=== PATIENT | male | born 1965 | race Caucasian/White ===

== ENCOUNTER 2020-06-12 11:10 | Emergency (ER) | payer BC ==
--- NOTE | 2020-06-12 12:04 | ERPHSYRPT ---
- History of Present Illness Time Seen by Provider: 06/12/20 11:44 Patient Subjective Stated Complaint: SOB Triage Nursing Assessment: Patient brought back to ED via w/c and transferred self to bed. Patient A+O Physician History: 54 years old male presented in the ER with chief complaint of cough and shortness of breath for the last 2 to 3 days with progressive worsening. Rectal dry cough associated with chest soreness and shortness of breath especially with activity. Also having fever and chills with a T-max of 101 yesterday. Has been taking [id number] meds with some symptomatic relief. No definite known sick contacts for COVID-19. No abdominal pain nausea vomiting, loss of taste or smell sensations. Timing/Duration: day(s) (3), gradual onset, worse Cough Quality/Degree: moderate, dry cough, productive cough Possible Cause: no prior episodes Modifying Factors: Improves With: nothing. Worsens With: coughing, exertion Associated Symptoms: fever, chills, chest pain/soreness, cough, headache, muscle aches, nasal congestion, sore throat Allergies/Adverse Reactions: No Known Drug Allergies Allergy (Unverified 06/12/20 11:13) Hx Influenza Vaccination/Date Given: Yes Hx Pneumococcal Vaccination/Date Given: No Immunizations Up to Date: Yes Travel Risk - International Travel Have you traveled outside of the country in past 3 weeks: No - Coronavirus Screening Are you exhibiting any of the following symptoms?: Yes Symptoms: Fever, Cough: New Onset, Shortness of Breath, Vomiting/Diarrhea, Loss of Taste or Smell Close contact with a COVID-19 positive Pt in past 14-21 Days: Yes - Review of Systems Constitutional: Fever, Chills, Fatigue, Malaise Eyes: No Symptoms Ears, Nose, & Throat: Nose Congestion, Throat Pain Respiratory: Cough, Dyspnea Cardiac: Chest Pain Abdominal/Gastrointestinal: No Symptoms Genitourinary Symptoms: No Symptoms Musculoskeletal: Myalgias Skin: No Symptoms Neurological: No Symptoms Psychological: No Symptoms Endocrine: No Symptoms Hematologic/Lymphatic: No Symptoms Immunological/Allergic: No Symptoms - Past Medical History Pertinent Past Medical History: No Neurological History: No Pertinent History ENT History: No Pertinent History Cardiac History: High Cholesterol, Hypertension Respiratory History: No Pertinent History Endocrine Medical History: No Pertinent History Musculoskeletal History: No Pertinent History GI Medical History: No Pertinent History History: No Pertinent History Psycho-Social History: No Pertinent History Male Reproductive Disorders: No Pertinent History - Past Surgical History Past Surgical History: No Neuro Surgical History: No Pertinent History Musculoskeletal: Orthopedic Surgery Other Surgical History: neck surgery with 8 screws and 2 rods 2018 - Social History Smoking Status: Never smoker Exposure to second hand smoke: No Drug Use: none Patient Lives Alone: No - Nursing Vital Signs Nursing Vital Signs: Initial Vital Signs Temperature 98.7 F 06/12/20 11:14 Pulse Rate 87 06/12/20 11:14 Respiratory Rate 32 H 06/12/20 11:14 Blood Pressure 122/83 06/12/20 11:14 O2 Sat by Pulse Oximetry 97 06/12/20 11:14 Pain Scale Pain Intensity 0 - Physical Exam General Appearance: no apparent distress, alert Eye Exam: PERRL/EOMI, eyes nml inspection Ears, Nose, Throat Exam: normal ENT inspection, TMs normal, pharyngeal erythema Neck Exam: normal inspection, non-tender, supple, full range of motion Respiratory Exam: normal breath sounds, lungs clear Cardiovascular Exam: regular rate/rhythm, normal heart sounds Gastrointestinal/Abdomen Exam: soft, normal bowel sounds, No tenderness Back Exam: normal inspection, normal range of motion Extremity Exam: normal inspection, normal range of motion Neurologic Exam: alert, oriented x 3, 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, 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 Skin Exam: normal color SpO2 Interpretation: normal SpO2: 97 O2 Delivery: Room Air - Course EKG Interpreted by Me: RATE (85), Sinus Rhythm, NORMAL AXIS, NORMAL INTERVALS, Non-specific ST Changes Ordered Tests: Active Orders 24 hr Category Date Time Status CHEST 1 VIEW (PORTABLE) Stat Exams 06/12/20 12:04 Taken BLOOD CULTURE Stat Lab 06/12/20 12:15 Received CBC W DIFF Stat Lab 06/12/20 12:25 Completed CMP Stat Lab 06/12/20 12:25 Completed INFLUENZA A+B YEVGENIY Stat Lab 06/12/20 13:00 Completed Lactic Acid Stat Lab 06/12/20 12:04 Completed Lactic Acid Stat Lab 06/12/20 14:17 Received MAGNESIUM Stat Lab 06/12/20 12:25 Completed Respiratory Therapy Assessment DAILY RT 06/12/20 12:40 Active Medication Summary Generic Name Dose Route Start Last Admin Trade Name Freq PRN Reason Stop Dose Admin Albuterol Sulfate 4 puff 06/12/20 13:00 06/12/20 12:25 Ventolin Common Canister IH 07/12/20 12:59 4 puff TIDRT FILIPE Administration Discontinued Medications Generic Name Dose Route Start Last Admin Trade Name Finesse PRN Reason Stop Dose Admin Hydrocodone Bitart/Acetaminophen 15 ml 06/12/20 12:05 06/12/20 12:11 Hydrocodone-Acetamin 2.5-108/5 Ml Solution PO 06/12/20 12:06 15 ml STAT STA Administration Hydrocodone Bitart/Acetaminophen Confirm 06/12/20 12:09 Hydrocodone-Acetamin 2.5-108/5 Ml Solution Administered 06/12/20 12:10 Dose 5 ml .ROUTE .STK-MED ONE Hydrocodone Bitart/Acetaminophen Confirm 06/12/20 12:10 Hydrocodone-Acetamin 2.5-108/5 Ml Solution Administered 06/12/20 12:11 Dose 10 ml .ROUTE .STK-MED ONE Levofloxacin 500 mg 06/12/20 14:08 06/12/20 14:11 Levofloxacin 250mg Tablet PO 06/12/20 14:09 500 mg STAT ONE Administration Levofloxacin Confirm 06/12/20 14:10 Levofloxacin 250mg Tablet Administered 06/12/20 14:11 Dose 500 mg .ROUTE .STK-MED ONE Lab/Rad Data: Laboratory Result Diagrams 06/12/20 12:25 06/12/20 12:25 Laboratory Results 06/12/20 06/12/20 06/12/20 Range/Units 13:00 12:25 12:25 WBC 6.2 (4.0-10.5) K/mm3 RBC 5.10 (4.1-5.6) M/mm3 Hgb 15.1 (12.5-18.0) gm/dl Hct 44.8 (42-50) % MCV 87.8 (78-100) fl MCH 29.6 (26-32) pg MCHC 33.7 (32-36) g/dl RDW 13.0 (11.5-14.0) % Plt Count 197 (150-450) K/mm3 MPV 11.2 H (7.5-11.0) fl Gran % 72.5 H (36.0-66.0) % Eos # (Auto) 0.08 (0-0.5) Absolute Lymphs (auto) 1.12 (1.0-4.6) Absolute Monos (auto) 0.48 (0.0-1.3) Lymphocytes % 18.1 L (24.0-44.0) % Monocytes % 7.8 (0.0-12.0) % Eosinophils % 1.3 (0.00-5.0) % Basophils % 0.3 (0.0-0.4) % Absolute Granulocytes 4.49 (1.4-6.9) Basophils # 0.02 (0-0.4) Sodium 134 L (137-145) mmol/L Potassium 3.5 (3.5-5.1) mmol/L Chloride 96 L (98-107) mmol/L Carbon Dioxide 30 (22-30) mmol/L Anion Gap 11.8 (5-15) MEQ/L BUN 18 (9-20) mg/dL Creatinine 1.00 (0.66-1.25) mg/dL Estimated GFR > 60.0 ML/MIN Glucose 194 H (74-106) mg/dL Lactic Acid (0.4-2.0) Calcium 8.9 (8.4-10.2) mg/dL Magnesium 1.9 (1.6-2.3) mg/dL Total Bilirubin 0.90 (0.2-1.3) mg/dL AST 34 (17-59) U/L ALT 31 (0-50) U/L Alkaline Phosphatase 109 (38-126) U/L Serum Total Protein 7.5 (6.3-8.2) g/dL Albumin 4.1 (3.5-5.0) g/dL Influenza Type A Ag NEGATIVE (NEGATIVE) Influenza Type B Ag NEGATIVE (NEGATIVE) 06/12/20 Range/Units 12:04 WBC (4.0-10.5) K/mm3 RBC (4.1-5.6) M/mm3 Hgb (12.5-18.0) gm/dl Hct (42-50) % MCV (78-100) fl MCH (26-32) pg MCHC (32-36) g/dl RDW (11.5-14.0) % Plt Count (150-450) K/mm3 MPV (7.5-11.0) fl Gran % (36.0-66.0) % Eos # (Auto) (0-0.5) Absolute Lymphs (auto) (1.0-4.6) Absolute Monos (auto) (0.0-1.3) Lymphocytes % (24.0-44.0) % Monocytes % (0.0-12.0) % Eosinophils % (0.00-5.0) % Basophils % (0.0-0.4) % Absolute Granulocytes (1.4-6.9) Basophils # (0-0.4) Sodium (137-145) mmol/L Potassium (3.5-5.1) mmol/L Chloride (98-107) mmol/L Carbon Dioxide (22-30) mmol/L Anion Gap (5-15) MEQ/L BUN (9-20) mg/dL Creatinine (0.66-1.25) mg/dL Estimated GFR ML/MIN Glucose (74-106) mg/dL Lactic Acid 2.4 H (0.4-2.0) Calcium (8.4-10.2) mg/dL Magnesium (1.6-2.3) mg/dL Total Bilirubin (0.2-1.3) mg/dL AST (17-59) U/L ALT (0-50) U/L Alkaline Phosphatase (38-126) U/L Serum Total Protein (6.3-8.2) g/dL Albumin (3.5-5.0) g/dL Influenza Type A Ag (NEGATIVE) Influenza Type B Ag (NEGATIVE) - Progress Progress: improved Air Movement: good Progress Note: 06/12/20 14:08 54 years old is evaluated for cough congestion and difficulty breathing. Patient is not in any distress. He is given breathing treatment and cough medication, on reevaluation feeling much better. Is maintaining oxygen saturation around 96% on room air, not tachypneic or tachycardic. Has normal white count, lactate of 2.4 and chest x-ray findings suggesting right-sided pneumonia. I have obtained COVID-19 test which is pending. He does not need oxygen, I have started him on Levaquin. I I have discussed with patient about observation admission versus going home and he wants to go home. I think this is reasonable. Will give liquid hydrocodone for cough and albuterol along with Levaquin. Recommended outpatient follow-up. Discussed signs symptoms of worsening needing return to ER which he seems understanding. Stable for discharge. Blood Culture(s) Obtained: Yes Antibiotics given: Yes Counseled pt/family regarding: lab results, diagnosis, need for follow-up, rad results - Departure Departure Disposition: Home Clinical Impression: Pneumonia Qualifiers: Pneumonia type: due to unspecified organism Laterality: right Lung location: lower lobe of lung Qualified Code(s): J18.9 - Pneumonia, unspecified organism Condition: Stable Critical Care Time: No Referrals: MORALES DA SILVA [Primary Care Provider] - (1-2 days for evaluation) Instructions: Pneumonia in Adults Additional Instructions: Take Tylenol/ibuprofen as needed for pain/fever. Drink plenty of fluids. Use contact/droplet precautions all the time until your COVID-19 test is back. Follow-up with primary care physician for reevaluation in 1 to 2 days. Return to ER for worsening cough/shortness of breath/fever chills etc. Prescriptions: Hydrocodone Bit/Acetaminophen [Hydrocodone-Acetaminophen Soln] 10 ml PO Q6H #120 ml Levofloxacin [Levaquin 500 MG Tablet] 500 mg PO DAILY #7 tablet Albuterol 8 gm Mdi Hfa [Ventolin Hfa MDI] 8 gm IH Q4H #1 [email or web address]
[2020-06-12] MEDS ORDERED: HYDROCODONE-ACETAMIN 2.5-108/5 ML SOLUTION PO STA (12:05)
[2020-06-12] MEDS ORDERED: HYDROCODONE-ACETAMIN 2.5-108/5 ML SOLUTION ONE ×2 (12:09→12:10)
[2020-06-12 12:38] LABS: Absolute Neutrophil Ct (ANC) 4.49 (1.4-6.9); BASOPHIL % 0.3 % (0.0-0.4); Basophil (Absolute #) 0.02 (0-0.4); Eosinophil % 1.3 % (0.00-5.0); Eosinophil (Absolute #) 0.08 (0-0.5); Hematocrit 44.8 % (42-50); Hemoglobin 15.1 gm/dl (12.5-18.0); Lymphocyte (Absolute #) 1.12 (1.0-4.6); Lymphocytes % 18.1 % (24.0-44.0); Mean Cell Volume 87.8 fl (78-100); Mean Corpuscular Hemoglobin 29.6 pg (26-32); Mean Corpuscular Hgb Concent. 33.7 g/dl (32-36); Mean Platelet Volume 11.2 fl (7.5-11.0); Monocyte (Absolute #) 0.48 (0.0-1.3); Monocytes % 7.8 % (0.0-12.0); Neutrophil % 72.5 % (36.0-66.0); Platelet Count 197 K/mm3 (150-450); White Blood Count 6.2 K/mm3 (4.0-10.5)
[2020-06-12 12:42] LABS: ALBUMIN 4.1 g/dL (3.5-5.0); ALKALINE PHOSPHATASE 109 U/L (38-126); ANION GAP 11.8 MEQ/L (5-15); BLOOD UREA NITROGEN 18 mg/dL (9-20); CHLORIDE 96 mmol/L (98-107); Calcium 8.9 mg/dL (8.4-10.2); Carbon Dioxide 30 mmol/L (22-30); EST GLOMERULAR FILTRATION RATE > 60.0 ML/MIN; Glucose 194 mg/dL (74-106); MAGNESIUM 1.9 mg/dL (1.6-2.3); Potassium 3.5 mmol/L (3.5-5.1); SGOT/AST 34 U/L (17-59); SGPT/ALT 31 U/L (0-50); SODIUM 134 mmol/L (137-145); Total Protein 7.5 g/dL (6.3-8.2)
[2020-06-12] MEDS ORDERED: VENTOLIN COMMON CANISTER IH SCH (13:00)
[2020-06-12 13:33] LABS: INFLUENZA A NEGATIVE (NEGATIVE); INFLUENZA B NEGATIVE (NEGATIVE)
[2020-06-12 13:40] VITALS: PULSE 77
[2020-06-12 14:08] VITALS: BP 104/72; O2SAT 97
[2020-06-12] MEDS ORDERED: Levofloxacin 250MG Tablet PO ONE (14:08)
[2020-06-12] MEDS ORDERED: Levofloxacin 250MG Tablet ONE (14:10)
--- NOTE | 2020-06-12 18:56 | XRAY ---
Indication: Severe cough. Suspect Covid 19. Comparison: None Portable chest demonstrates subtle right infrahilar infiltrate versus atelectasis. Remaining heart and lungs unremarkable. Bony thorax intact with lower cervical fusion hardware.
== END 2020-06-12 14:24 | disposition home or self-care (01) ==
LOC: ED 11:10
DX: J18.9 Pneumonia, unspecified organism (principal)
CPT/HCPCS: 36415; 71045; 80053; 83605; 83735; 85025; 87040; 87400; 94640; 99284; U0003; A9270-GY

== ENCOUNTER 2022-06-27 08:00 | Day surgery (SDC) | payer BC | END 2022-06-27 08:40 | disposition home or self-care (01) | LOC: SDC 08:00 | PROVIDERS: ATTEND Family Medicine | DX: Z53.8 Procedure and treatment not carried out for other reasons (principal) ==

== ENCOUNTER 2023-02-01 18:57 | Emergency (ER) | payer BC ==
[2023-02-01 19:02] VITALS: RESP 20; TEMP 97.1
--- NOTE | 2023-02-01 19:51 | ERPHSYRPT ---
- History of Present Illness Time Seen by Provider: 02/01/23 19:46 Source: patient, family Exam Limitations: no limitations Patient Subjective Stated Complaint: Pt states "I had a stroke a week ago and this morning I woke up with a terrible headache." Triage Nursing Assessment: Pt presented alert and oriented X 3, skin pwd. PT ambulates with an upright steady gait, able to speak in clear full sentences. Pt stated pain is right behind right eye Physician History: Patient is 57-year-old male with significant past medical history of recently diagnosed diabetes and hypertension. Patient was admitted in the hospital with possible TIA. Patient states that 2 weeks ago when he woke up and tried to walk his dog suddenly he got so weak all over so he came to the emergency room where he was initially diagnosed as a transient ischemic attack. Patient underwent MRI CAT scan and CT angiogram of the brain and they all were reported unremarkable except for some microvascular changes due to hypertension. Patient echocardiogram was also unremarkable. 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 Patient wake up today with terrible headache behind his right eye. Patient also has some drooping on his left upper eyelid. Patient does not have any difficulty in seeing. Patient denies any nausea vomiting diarrhea constipation fever chills shortness of breath or chest pain. Timing/Duration: today Quality: aching Head Pain Location: frontal (behind right eye) Severity of Pain-Max: moderate Severity of Pain-Current: moderate Recent Head Trauma: no recent headache/trauma Associated Symptoms: denies symptoms Previous symptoms: no prior history Allergies/Adverse Reactions: No Known Drug Allergies Allergy (Verified 01/26/23 08:27) Home Medications: Duloxetine HCl 30 mg [Cymbalta 30 MG Capsule] 30 mg PO BID 01/26/23 [History] Ergocalciferol (Vitamin D2) [Vitamin D2] 50,000 unit PO UD 01/26/23 [History] Fenofibrate Nanocrystallized [Fenofibrate] 145 mg PO DAILY 01/26/23 [History] Lisinopril/Hydrochlorothiazide [Lisinopril-Hctz 20-25 mg Tab] 1 tab PO DAILY 01/26/23 [History] Oxycodone / APAP 10/325 mg [Oxycodone-Acetaminophen 10-325] 1 tab PO BID 01/26/23 [History] Pregabalin 200 mg PO BID 01/26/23 [History] Tamsulosin HCl 0.4 mg [Flomax 0.4 MG] 0.4 mg PO DAILY 01/26/23 [History] Hx Tetanus, Diphtheria Vaccination/Date Given: No Hx Influenza Vaccination/Date Given: No Hx Pneumococcal Vaccination/Date Given: No Immunizations Up to Date: No Travel Risk - International Travel Have you traveled outside of the country in past 3 weeks: No - Coronavirus Screening Are you exhibiting any of the following symptoms?: Yes Symptoms: Headaches/Body Aches/Fatigue Close contact with a COVID-19 positive Pt in past 14-21 Days: No - Vaccine Status Have you recieved a Covid-19 vaccination: Yes Breakdown Person: Punchey - Review of Systems Constitutional: No Fever, No Chills Eyes: No Symptoms Ears, Nose, & Throat: No Symptoms Respiratory: No Cough, No Dyspnea Cardiac: No Chest Pain, No Edema, No Syncope Abdominal/Gastrointestinal: No Abdominal Pain, No Nausea, No Vomiting, No Diarrhea Genitourinary Symptoms: No Dysuria Musculoskeletal: No Back Pain, No Neck Pain Skin: No Rash Neurological: Headache, No Dizziness, No Focal Weakness, No Sensory Changes Psychological: No Symptoms Endocrine: No Symptoms All Other Systems: Reviewed and Negative - Past Medical History Pertinent Past Medical History: Yes Neurological History: No Pertinent History ENT History: No Pertinent History Cardiac History: High Cholesterol, Hypertension Respiratory History: No Pertinent History Endocrine Medical History: No Pertinent History Musculoskeletal History: No Pertinent History GI Medical History: GERD History: No Pertinent History Psycho-Social History: No Pertinent History Male Reproductive Disorders: No Pertinent History - Past Surgical History Past Surgical History: Yes Neuro Surgical History: No Pertinent History Cardiac: No Pertinent History Respiratory: No Pertinent History Gastrointestinal: No Pertinent History Genitourinary: No Pertinent History Musculoskeletal: Orthopedic Surgery Male Surgical History: No Pertinent History Other Surgical History: neck surgery with 8 screws and 2 rods 2018 - Social History Smoking Status: Former smoker Exposure to second hand smoke: No Drug Use: none Patient Lives Alone: Yes - Nursing Vital Signs Nursing Vital Signs: Initial Vital Signs Temperature 97.1 F 02/01/23 18:58 Pulse Rate 90 02/01/23 18:58 Respiratory Rate 20 02/01/23 18:58 Blood Pressure 121/78 02/01/23 18:58 O2 Sat by Pulse Oximetry 98 02/01/23 18:58 Pain Scale Pain Intensity 7 - Physical Exam General Appearance: no apparent distress Eye Exam: PERRL/EOMI Ears, Nose, Throat Exam: normal ENT inspection, moist mucous membranes Neck Exam: normal inspection, supple, full range of motion, No meningismus Respiratory Exam: normal breath sounds, lungs clear Cardiovascular Exam: regular rate/rhythm, normal heart sounds Gastrointestinal/Abdominal Exam: soft, No tenderness, No distention Back Exam: normal inspection, normal range of motion Mental Status Exam: alert, oriented x 3, 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 Sagittal, coronal, and axial MRI brain performed without contrast using T1, T2, FLAIR, diffusion, and ADC sequences. Comparison: None Ventriculosulcal pattern appears symmetric. Age-appropriate global atrophy with very minimal periventricular degenerative micro-ischemia bilaterally. Cerebral peduncle demonstrates 6 mm focus of central restricted signal favoring acute micro-ischemia. No acute intracranial hemorrhage, abnormal extra-axial fluid collection, or mass effect. Fourth ventricle is midline without hydrocephalus. 7/8 cranial nerve complex bilaterally symmetric. Normal flow void signal within the major intracerebral circulation. Visualized paranasal sinuses are clear. Impression: Atrophy and degenerative micro-ischemia within normal limits for patient's age. 6 mm focus acute micro-ischemia central cerebral peduncle. Remaining MRI brain without contrast exam is negative. CT/CT ANGIOGRAPHY NECK CLINICAL HISTORY:eval for cva COMPARISON:None. TECHNIQUE:Multislice CT carotid angiography with contrast in thin axial cuts with multiplanar reformats and 3D VR. FINDINGS: Normal caliber and contrast filling of the carotid arteries from the their origin in aortic arch along the cervical course up to [place]. Normal caliber and contrast filling of the left vertebral artery from the their aorigin in aortic arch along the cervical course up to [place]. Patent, yet markedly attenuated right vertebral artery along its course (variant). Adequate contrast filling of arteries sharing in [place]. No evident atherosclerotic plaques, stenotic segments or occlusion. No detecetd aneurysmal dilatations or vascular lesions. IMPRESSION: Grossly unremarkable CT angiography of the cervical arteries. - Progress Progress: improved Counseled pt/family regarding: diagnosis, need for follow-up Medical Desision Making - Risk of complications The pt has a mod risk of morbidity or mortality based on: Need for prescription drug management, Diagnosis or treatment limited by SDOH - Departure Departure Disposition: Home Clinical Impression: Ophthalmic migraine Condition: Stable Critical Care Time: No Referrals: MORALES DA SILVA MD [Primary Care Provider] - Follow up/PCP as directed Instructions: Migraines (DC) Additional Instructions: Patient is advised to follow-up with saddle stitch operator tomorrow and advised to get dilated eye exam. Discharge/Care Plan ZENAIDA FERGUSON was seen on 02/01/23 in the Emergency Room. The patient was counseled regarding Diagnosis,Lab results, Imaging studies, need for follow up and when to return to the Emergency Room. Prescriptions given: Discharge Note I have spoken with the patient and/or caregivers. I have explained the patient's condition, diagnosis and treatment plan based on the information available to me at this time. I have answered the patient's and/or caregiver's questions and addressed any concerns. The patient and/or caregivers have as good understanding of the patient's diagnosis, condition and treatment plan as can be expected at this point. The vital signs have been stable. The patient's condition is stable and appropriate for discharge from the emergency department. The patient will pursue further outpatient evaluation with the primary care physician or other designated or consulting physician as outlined in the discharge instructions. The patient and/or caregivers are agreeable to this plan of care and follow-up instructions have been explained in detail. The patient and/or caregivers have received these instruction. The patient/and or caregivers are aware that any significant change in condition or worsening of symptoms should prompt an immediate return to this or the closest emergency department or call 911. ZENAIDA FERGUSON was seen on 02/01/23 n the Emergency Room. At that time you were treated for an emergent condition, during your visit Laboratory, Radiology and/or other procedures may have been ordered. It is very important that you follow-up with your Primary Care Physician MORALES DA SILVA within the next 24-48 hours to review your Emergency Room visit and the final results of testing that was ordered. Some test results such as Urine Cultures, Blood Cultures, and other cultures if ordered will not be finalized for 24-48 hours. If you do not have a Primary Care Provider please call the medical records department at [phone] ext [phone] to obtain a copy of your results or you may sign into our patient portal to obtain these results by visiting us @ [email or web address] and completing the following steps: 1. Click on the Patient Portal link 2. Click the Patient Self Enrollment Link to complete the enrollment form and entering your 3. Once the enrollment form is completed you will receive an email with a temporary ID and password at the email address you provided. 4. Next choose a user name and password. Your user name must be at least 4 characters long and your password must be at least 4 characters long. 5. Choose a security question from the list and provide your answer to the question. If you already have signed into the Health Portal you may access your Health Care Information 28/01 by the following steps: 1. Login to our website @ [email or web address] 2. Enter your original user name and password. FAQS The [facility] Health Portal is an online tool that contains your Lab Results, Radiology Reports, Visit History, Discharge Instructions and Health Summary Lab and Radiology Results will not be available for 72 hours on the portal. The Portal is a secure site, passwords are encryted and URLs are re-written so they cannot be copied and pasted. You and authorized family members are the only ones who can access your Portal. Also there is a timeout feature that protects your information if you leave the Portal page open. If you have technical difficulty please use the Contact Us link on the page this will allow you to submit any questions you have regarding the Portal or you may contact the Medical Record Department at [phone] ext [phone].
[2023-02-01] MEDS ORDERED: BENADRYL 50 MG/ML IM ONE (19:52)
[2023-02-01] MEDS ORDERED: TORAdol 30 mg Injection IM ONE (19:52)
[2023-02-01] MEDS ORDERED: BENADRYL 50 MG/ML ONE (19:59)
[2023-02-01] MEDS ORDERED: TORAdol 30 mg Injection ONE (19:59)
[2023-02-01 20:56] VITALS: BP 121/81; PULSE 60; O2SAT 95
== END 2023-02-01 20:56 | disposition home or self-care (01) ==
LOC: ED 18:57
DX: G43.B0 Ophthalmoplegic migraine, not intractable (principal); H02.402 Unspecified ptosis of left eyelid; E78.5 Hyperlipidemia, unspecified; I10 Essential (primary) hypertension; Z79.891 Long term (current) use of opiate analgesic; Z79.899 Other long term (current) drug therapy
CPT/HCPCS: 96372; 99283; J1200; J1885